=== PATIENT | female | born 1990 | race Hispanic/Latino ===

== ENCOUNTER 2023-02-11 02:52 | Inpatient (IN) | payer OTHER, SELFPAY ==
[2023-02-11] MEDS ORDERED: Magnesium 2 GM/50 ML BAG (IN WATER) ONE (03:21)
[2023-02-11] MEDS ORDERED: Labetalol HCl 100 MG/20 ML VIAL ONE ×2 (03:21→03:51)
[2023-02-11] MEDS ORDERED: Benzocaine-Menthol 82.5 ML CAN TOP PRN (03:32)
[2023-02-11] MEDS ORDERED: Milk Of Magnesia 30 ML UDCUP PO PRN (03:32)
[2023-02-11] MEDS ORDERED: Preparation H Ointment 28 GM TUBE PR PRN (03:32)
[2023-02-11] MEDS ORDERED: Ondansetron PF 4 MG/2 ML Vial IVP PRN (03:32)
[2023-02-11] MEDS ORDERED: Lanolin Ointment 7 GM TUBE TOP PRN (03:32)
[2023-02-11] MEDS ORDERED: Misoprostol 200 MCG TAB VAG PRN (03:32)
[2023-02-11] MEDS ORDERED: Bisacodyl 10 MG SUPP PR PRN (03:32)
[2023-02-11] MEDS ORDERED: hydrALAZINE 20 MG/ML VIAL SLOW IVP PRN ×3 (03:32→03:50)
[2023-02-11] MEDS ORDERED: Calcium Gluc 4.6 MEQ/10 ML (100 MG/ML) SLOW IVP PRN ×2 (03:42→03:50)
[2023-02-11] MEDS ORDERED: Lorazepam 2 MG/ML VIAL SLOW IVP PRN ×2 (03:42→03:50)
[2023-02-11] MEDS ORDERED: Labetalol HCl 100 MG/20 ML VIAL SLOW IVP PRN ×2 (03:50)
[2023-02-11] MEDS ORDERED: Magnesium Sulfate 20 gm/500 ml 20 GM/500 ML BAG ONE (03:51)
[2023-02-11] MEDS: Magnesium Sulfate 20 gm/500 ml 20 GM/500 ML BAG IVPB SCH ×2 (03:55→14:32)
[2023-02-11] MEDS ORDERED: Oxytocin 30 units/NS 500 ML 500 ML IV SCH ×2 (04:00)
[2023-02-11 04:05] VITALS: BMI 25.0
[2023-02-11 05:39] LABS: ALT (SGPT) 14 U/L (8-55); AST (SGOT) 19 U/L (5-34); Albumin 3.5 g/dL (3.5-5.0); Alkaline Phosphatase 174 U/L (40-110); Anion Gap 17 mmol/L (10-20); BUN (Urea Nitrogen) 6 mg/dL (7.0-18.7); Bilirubin, Total 0.2 mg/dL (0.2-1.2); Calc. Creatinine Clearance 133 mL/min (70-130); Calcium 8.3 mg/dL (7.8-10.44); Carbon Dioxide 19 mmol/L (22-29); Chloride 105 mmol/L (98-107); Estimated GFR 121; Globulin 3.7 g/dL (2.4-3.5); Glucose 119 mg/dL (70-105); Potassium 3.5 mmol/L (3.5-5.1); Protein, Total 7.2 g/dL (6.0-8.3); Sodium 137 mmol/L (136-145)
[2023-02-11 05:58] LABS: HBSAg Index 0.13 S/CO (0-0.99); HIV (1/2) Antibody/Antigen Non-Reactive (NonReactive); Hep B Surf Ag Non-Reactive S/CO (NonReactive)
[2023-02-11 05:59] LABS: Syphilis Antibody Nonreactive (Nonreactive); Syphilis Antibody Index 0.04 S/CO (<1.00 Non-Reactive)
[2023-02-11] MEDS: Lactated Ringer's 1,000 ML IV SCH (06:42)
[2023-02-11 06:49] LABS: #Monocytes 0.2 10x3/uL (0.0-1.1); #Neutrophils 6.1 10x3/uL (1.5-8.4); %Basophils 0.4 % (0.0-2.0); %Eosinophils 0.5 % (0.0-6.0); %Lymphocytes 15.2 % (18.0-47.0); %Monocytes 2.5 % (0.0-10.0); Hemoglobin 11.3 g/dL (12.0-15.5); Mean Corpuscular HGB CONC 33.2 g/dL (32.0-36.0); Mean Corpuscular Hemoglobin 28.5 pg (27.0-33.0); Mean Corpuscular Volume 85.6 fl (81.6-98.3); Mean Platelet Volume 10.8 fl (7.4-10.4); Platelet Count 309 10x3/uL (150-450); RBC Distribution Width 13.2 % (11.5-14.5); Red Blood Cell (RBC) Count 3.97 10x6/uL (3.90-5.03); White Blood Cell (WBC) Count 7.6 10x3/uL (3.5-10.5)
[2023-02-11] MEDS ORDERED: NIFEdipine XL 30 MG ER.TAB PO SCH ×2 (08:00→16:00)
[2023-02-11] MEDS: Ferrous Sulfate 325 MG TAB PO SCH ×2 (11:16→22:42)
[2023-02-11] MEDS: Docusate 100 MG CAP PO SCH ×2 (11:16→22:42)
[2023-02-11] MEDS: Prenatal Vitamin 1 TAB PO SCH (11:16)
[2023-02-11 12:35] LABS: Amphetamine Not Detected (NotDetected); Barbiturates Screen Not Detected (NotDetected); Benzodiazepine Screen Not Detected (NotDetected); Cocaine Metabolite Screen Not Detected (NotDetected); Methadone Not Detected (NotDetected); Methamphetamine Not Detected (NotDetected); Opiate Screen Not Detected (NotDetected); Oxycodone Screen Not Detected (NotDetected); Phencyclidine (PCP) Not Detected (NotDetected); THC/Cannabinoid Screen Not Detected (NotDetected); Tricyclic Screen Not Detected (NotDetected)
[2023-02-11 12:41] LABS: Creatinine, Urine Less than 20.00 mg/dL (47-110); Protein, Urine Random Quant 17 mg/dL (1-14)
[2023-02-11] MEDS: Ibuprofen 800 MG TAB PO SCH (14:32)
[2023-02-12] MEDS ORDERED: NIFEdipine XL 30 MG ER.TAB PO SCH ×2 (09:00)
[2023-02-12] MEDS ORDERED: NIFEdipine XL 60 MG ER.TAB PO SCH (09:00)
[2023-02-12] MEDS: Ferrous Sulfate 325 MG TAB PO SCH ×2 (09:18→18:29)
[2023-02-12] MEDS: Prenatal Vitamin 1 TAB PO SCH (09:18)
[2023-02-12] MEDS: Docusate 100 MG CAP PO SCH ×2 (09:18→22:00)
[2023-02-12] MEDS: Ibuprofen 800 MG TAB PO SCH ×3 (17:39→22:00)
[2023-02-12] MEDS: Lactated Ringer's 1,000 ML IV SCH ×3 (17:40→21:03)
[2023-02-13] MEDS: Lactated Ringer's 1,000 ML IV SCH ×2 (04:36→15:21)
[2023-02-13] MEDS: Ibuprofen 800 MG TAB PO SCH ×3 (06:03→21:23)
[2023-02-13] MEDS: Ferrous Sulfate 325 MG TAB PO SCH (07:22)
[2023-02-13] MEDS: Prenatal Vitamin 1 TAB PO SCH (07:59)
[2023-02-13] MEDS: Docusate 100 MG CAP PO SCH ×2 (07:59→21:23)
[2023-02-13] MEDS ORDERED: NIFEdipine XL 30 MG ER.TAB PO SCH ×2 (09:00→11:45)
[2023-02-13] MEDS ORDERED: hydrALAZINE 20 MG/ML VIAL ONE (11:29)
[2023-02-13] MEDS ORDERED: hydrALAZINE 20 MG/ML VIAL SLOW IVP SCH (11:45)
[2023-02-13] MEDS ORDERED: NIFEdipine 10 MG CAP PO SCH (12:15)
[2023-02-13 12:47] LABS: Hematocrit 36.6 % (34.9-44.5); Mean Corpuscular HGB CONC 32.8 g/dL (32.0-36.0); Mean Corpuscular Hemoglobin 28.6 pg (27.0-33.0); Mean Corpuscular Volume 87.1 fl (81.6-98.3); Mean Platelet Volume 10.1 fl (7.4-10.4); Platelet Count 339 10x3/uL (150-450); RBC Distribution Width 13.8 % (11.5-14.5); White Blood Cell (WBC) Count 8.7 10x3/uL (3.5-10.5)
[2023-02-13] MEDS ORDERED: Labetalol HCl 100 MG/20 ML VIAL ONE (12:49)
[2023-02-13 13:00] LABS: ALT (SGPT) 13 U/L (8-55); AST (SGOT) 12 U/L (5-34); Albumin 3.7 g/dL (3.5-5.0); Alkaline Phosphatase 161 U/L (40-110); Anion Gap 15 mmol/L (10-20); BUN (Urea Nitrogen) 7 mg/dL (7.0-18.7); Bilirubin, Total 0.3 mg/dL (0.2-1.2); Calc. Creatinine Clearance 138 mL/min (70-130); Calcium 9.5 mg/dL (7.8-10.44); Carbon Dioxide 23 mmol/L (22-29); Chloride 105 mmol/L (98-107); Estimated GFR 122; Glucose 91 mg/dL (70-105); Potassium 4.3 mmol/L (3.5-5.1); Protein, Total 7.7 g/dL (6.0-8.3); Sodium 139 mmol/L (136-145)
[2023-02-13] MEDS ORDERED: Labetalol HCl 100 MG/20 ML VIAL SLOW IVP SCH (13:30)
[2023-02-13 15:51] LABS: Creatinine, Urine 36.65 mg/dL (47-110)
[2023-02-13] MEDS: Labetalol HCl 200 MG TAB PO SCH (21:23)
[2023-02-14] MEDS: Lactated Ringer's 1,000 ML IV SCH ×3 (03:19→17:44)
[2023-02-14 03:45] LABS: ALT (SGPT) 8 U/L (8-55); AST (SGOT) 10 U/L (5-34); Albumin 3.4 g/dL (3.5-5.0); Alkaline Phosphatase 136 U/L (40-110); Anion Gap 13 mmol/L (10-20); BUN (Urea Nitrogen) 12 mg/dL (7.0-18.7); Bilirubin, Total 0.2 mg/dL (0.2-1.2); Calc. Creatinine Clearance 119 mL/min (70-130); Calcium 8.7 mg/dL (7.8-10.44); Carbon Dioxide 24 mmol/L (22-29); Chloride 102 mmol/L (98-107); Estimated GFR 118; Globulin 3.3 g/dL (2.4-3.5); Glucose 83 mg/dL (70-105); Potassium 3.7 mmol/L (3.5-5.1); Protein, Total 6.7 g/dL (6.0-8.3); Sodium 135 mmol/L (136-145)
[2023-02-14 03:49] LABS: #Eosinphils 0.2 10x3/uL (0.0-0.5); #Monocytes 0.4 10x3/uL (0.0-1.1); #Neutrophils 4.3 10x3/uL (1.5-8.4); %Basophils 0.6 % (0.0-2.0); %Eosinophils 2.6 % (0.0-6.0); %Lymphocytes 31.5 % (18.0-47.0); %Monocytes 5.8 % (0.0-10.0); %Neutrophils 59.1 % (40.0-75.0); Hematocrit 32.5 % (34.9-44.5); Hemoglobin 10.4 g/dL (12.0-15.5); Mean Corpuscular Hemoglobin 28.1 pg (27.0-33.0); Mean Corpuscular Volume 87.8 fl (81.6-98.3); Mean Platelet Volume 9.9 fl (7.4-10.4); Platelet Count 314 10x3/uL (150-450); RBC Distribution Width 13.9 % (11.5-14.5); White Blood Cell (WBC) Count 7.3 10x3/uL (3.5-10.5)
[2023-02-14] MEDS: Ibuprofen 800 MG TAB PO SCH ×3 (05:14→22:05)
[2023-02-14] MEDS ORDERED: hydrALAZINE 20 MG/ML VIAL SLOW IVP PRN ×2 (08:07)
[2023-02-14] MEDS: Labetalol HCl 200 MG TAB PO SCH ×2 (08:10→21:41)
[2023-02-14] MEDS: Docusate 100 MG CAP PO SCH ×2 (08:10→22:05)
[2023-02-14] MEDS: Prenatal Vitamin 1 TAB PO SCH (08:10)
[2023-02-14] MEDS ORDERED: Labetalol HCl 200 MG TAB PO SCH ×2 (09:00→21:00)
[2023-02-14] MEDS ORDERED: NIFEdipine XL 60 MG ER.TAB PO SCH (09:00)
[2023-02-14] MEDS ORDERED: Labetalol HCl 100 MG TAB PO SCH (09:15)
[2023-02-14 14:27] LABS: HBSAB Concentration Less than 8.00 mIU/mL; Hep B Surf AB Non-Reactive (NonReactive)
[2023-02-14] MEDS: Ferrous Sulfate 325 MG TAB PO SCH (17:44)
[2023-02-14] MEDS ORDERED: NIFEdipine XL 60 MG ER.TAB PO ONE (21:03)
[2023-02-14] MEDS ORDERED: NIFEdipine 10 MG CAP PO SCH (21:30)
[2023-02-15] MEDS: Ibuprofen 800 MG TAB PO SCH ×3 (05:43→22:12)
[2023-02-15] MEDS: Lactated Ringer's 1,000 ML IV SCH (07:10)
[2023-02-15] MEDS: Ferrous Sulfate 325 MG TAB PO SCH ×2 (07:12→15:14)
[2023-02-15] MEDS: Labetalol HCl 200 MG TAB PO SCH ×3 (09:14→22:12)
[2023-02-15] MEDS: Prenatal Vitamin 1 TAB PO SCH (09:14)
[2023-02-15] MEDS: Docusate 100 MG CAP PO SCH ×2 (09:14→22:12)
[2023-02-15] MEDS ORDERED: Labetalol HCl 100 MG/20 ML VIAL SLOW IVP PRN ×2 (11:39)
[2023-02-15] MEDS ORDERED: hydrALAZINE 20 MG/ML VIAL SLOW IVP PRN (11:39)
[2023-02-15] MEDS ORDERED: Lorazepam 2 MG/ML VIAL SLOW IVP PRN (11:39)
[2023-02-15] MEDS ORDERED: NIFEdipine XL 30 MG ER.TAB PO SCH (12:45)
[2023-02-15] MEDS ORDERED: NIFEdipine 10 MG CAP PO ONE (21:05)
[2023-02-16] MEDS: Ibuprofen 800 MG TAB PO SCH (06:00)
[2023-02-16] MEDS: Ferrous Sulfate 325 MG TAB PO SCH (07:55)
[2023-02-16 08:06] VITALS: TEMP 98.1
[2023-02-16] MEDS: Labetalol HCl 200 MG TAB PO SCH (08:10)
[2023-02-16] MEDS: Docusate 100 MG CAP PO SCH (08:11)
[2023-02-16] MEDS: Prenatal Vitamin 1 TAB PO SCH (08:11)
[2023-02-16] MEDS ORDERED: NIFEdipine XL 30 MG ER.TAB PO SCH (09:00)
[2023-02-16 09:40] VITALS: BP 140/68
== END 2023-02-16 11:35 | disposition home or self-care (01) | DRG 807 ==
LOC: CSHERS 02:52 → CSHLD 03:55 → CSHPP 02-12 15:25
PROVIDERS: ADMIT Obstetrics & Gynecology; ATTEND Obstetrics & Gynecology
PROC: 10E0XZZ Delivery of Products of Conception, External Approach (ICD-10-PCS; principal; 2023-02-11)
DX: O62.3 Precipitate labor (principal); Z37.0 Single live birth; O14.14 Severe pre-eclampsia complicating childbirth; O77.0 Labor and delivery complicated by meconium in amniotic fluid; Z3A.00 Weeks of gestation of pregnancy not specified
CPT/HCPCS: 36415; 51702; 80053; 80306; 82570; 84156; 85025; 85027; 86706; 86762; 86780; 86850; 86900; 86901; 87340; 87389; 88307; 99284; 99285; J0360; J2590; J3475; J7120